=== PATIENT | male | born 1970 | race Two or more races ===

== ENCOUNTER 2020-08-04 10:42 | Outpatient (REF) | payer OTHER, BC, SELFPAY | END 2020-08-04 10:43 | disposition home or self-care (01) | LOC: HO.LAB 10:42 | PROVIDERS: Visit Provider Internal Medicine | DX: Z20.828 Contact with and (suspected) exposure to other viral communicable diseases (principal) | CPT/HCPCS: C9803; U0003 ==

== ENCOUNTER 2020-09-11 14:25 | Outpatient (REF) | payer OTHER, BC, SELFPAY ==
[2020-09-11 15:08] LABS: Influenza A PCR NEGATIVE (Negative); Influenza B PCR NEGATIVE (Negative); Resp Syncy Virus RNA Qual PCR NEGATIVE (Negative); SARS COV2 PCR INHOUSE NEGATIVE (Negative)
== END 2020-09-11 14:26 | disposition home or self-care (01) ==
LOC: HO.LNP 14:25
PROVIDERS: Visit Provider Internal Medicine
DX: Z20.822 Contact with and (suspected) exposure to COVID-19 (principal)
CPT/HCPCS: 0241U

== ENCOUNTER → 2021-09-17 14:27 | Outpatient (BNVA) | payer OTHER, SELFPAY | PROVIDERS: PCP Internal Medicine; Referring Provider Internal Medicine; Visit Provider Surgery | DX: K64.9 Unspecified hemorrhoids (principal) | CPT/HCPCS: 46600; 99202 ==

== ENCOUNTER 2021-10-09 06:47 | Day surgery (SDC) | payer OTHER, SELFPAY ==
--- NOTE | 2021-10-08 09:23 | HO.ANESPROP2 ---
Documented by User: Katherin Lanza NP 10/08/21 09:24 HPI - Anesthesia Eval Consult details Narrative: 50yo M for EUA, Hemorrhoidectomy PMFSH Active Problems Active Problems: All Active Problems (Updated 09/17/21 @ 14:56 by Marc Cleary MD) Bleeding hemorrhoids (Acute) Past Medical History Medical History (Updated 10/09/21 @ 07:09 by Juany Holder) Bleeding hemorrhoids Depression Factor VII deficiency PTSD (post-traumatic stress disorder) Family History Family History Mother Ovarian cancer Surgical History Surgical History (Updated 10/09/21 @ 07:19 by Juany Holder) Status post left foot surgery Status post right foot surgery Social History Social History Alcohol intake: current Alcohol intake frequency: a few times a month Patient Tobacco Use Status: Never used Tobacco Use of substances other than those prescribed or required for medical reasons: No Are you DNR?: No Advance Directives: No Advance Directives Information Provided: Yes Meds Allergies Allergy/AdvReac Type Severity Reaction Status Date / Time No Known Allergies Allergy Verified 10/09/21 07:04 Home Medications Medication Instructions Recorded Confirmed Last Taken Type melatonin 1 tab PO BEDTIME PRN 10/09/21 10/09/21 Unknown History prazosin 1 cap PO BEDTIME 10/09/21 10/09/21 Unknown History sertraline 1 tab PO DAILY 10/09/21 10/09/21 Unknown History Exam Exam Date and Time: October 08, [id number] Assessment and Plan Assessment Anesthesia Assessment: Chart Reviewed Documented by User: Joby Mas 10/09/21 08:34 HPI - Anesthesia Eval Consult details Narrative: 50yo M for EUA, Hemorrhoidectomy [place] PMFSH Past Medical History Medical History (Updated 10/09/21 @ 07:09 by Juany Holder) Bleeding hemorrhoids Depression Factor VII deficiency PTSD (post-traumatic stress disorder) Family History Family History Mother Ovarian cancer Family history of problems with anesthesia: No Surgical History Surgical History (Updated 10/09/21 @ 07:19 by Juany Holder) Status post left foot surgery Status post right foot surgery History of Problems with Anesthesia: No Social History Social History Alcohol intake: current Alcohol intake frequency: a few times a month Patient Tobacco Use Status: Never used Tobacco Use of substances other than those prescribed or required for medical reasons: No Are you DNR?: No Advance Directives: No Advance Directives Information Provided: Yes Meds Allergies Allergy/AdvReac Type Severity Reaction Status Date / Time No Known Allergies Allergy Verified 10/09/21 07:04 Home Medications Medication Instructions Recorded Confirmed Last Taken Type melatonin 1 tab PO BEDTIME PRN 10/09/21 10/09/21 Unknown History prazosin 1 cap PO BEDTIME 10/09/21 10/09/21 Unknown History sertraline 1 tab PO DAILY 10/09/21 10/09/21 Unknown History Exam Airway Mallampati Class: III Loose/Missing/Broken Teeth: Yes Heart: rrr Lungs: bl breath sounds Assessment and Plan Assessment Anesthesia Assessment: Anesthesia Plan Discussed Final Anesthetic Review Family History of Problems with Anesthesia: No History of Problems with Anesthesia: No NPO: Yes ASA Class: II Final Preanesthetic Review: Meds/Allgs Chart Reviewed and Anes Risks/Benef Reviewed Patient Risk: Intermediate Procedure Risk: Intermediate Anesthetic Plan Anesthetic Plan: GA Disposition: Standard PACU
[2021-10-09] VITALS (8 sets, daily range): BP systolic 94–110; BP diastolic 55–74; PULSE 54–75; RESP 16–17; TEMP 36.2–36.7; O2SAT 97–100; BMI 24.3
--- NOTE | 2021-10-09 07:29 | PC.NURSE ---
Patient drank 7oz of water this morning at 0600. Anesthesia Dr. Mas notified. Okay to proceed with procedure.
--- NOTE | 2021-10-09 07:29 | MHC.SHP ---
Pre-Procedural Eval Section A Date of Service: 10/09/21 The patient is an INPATIENT: No Changes since office visit: No Cold of Flu in the past 2 weeks, No New Medical Problems, No Changes in Medication and No Patient answered all questions The History & Physical has been completed within 30 days and I have reviewed it.: Yes Section B Chief Complaint: Bleeding Hemorrhoids Allergies: Allergies Allergy/AdvReac Type Severity Reaction Status Date / Time No Known Allergies Allergy Verified 10/09/21 07:04 Plan I have reviewed the history and physical and performed a pertinent physical examination on my patient. No changes have occurred unless specified.
[2021-10-09] MEDS: Lactated Ringers 1,000 ML 100 ML IVCONT (08:03)
--- NOTE | 2021-10-09 09:32 | W.PM.OPN ---
Operative Note Operative Note Date of Service: 10/09/21 Narrative: Preop diagnosis: Bleeding hemorrhoids Postop diagnosis: Bleeding hemorrhoids, internal and external on the right Procedure: Exam under anesthesia hemorrhoidectomy Surgeon: Marc Cleary MD Patient is a 50-year-old male has a long history of internal external hemorrhoids with bleeding. He wanted to proceed with hemorrhoidectomy in view of this. He understood the technique of the procedure. He was aware of the risks, benefits, and alternatives. He was brought to the operating room and placed in prone carroll-knife position under general anesthesia via endotracheal tube. The buttocks were retracted with wide tape laterally. The perianal area was prepped and draped in the usual sterile fashion. A surgical time-out was done. The patient received Cefotan 2 g IV preoperatively. I infiltrated the perianal area with lidocaine 1%. Examination of the anal orifice revealed an external hemorrhoid on the right side. Inserted the Melly Howell retractor. I examined the anal canal circumferentially. Again this mixed internal and external hemorrhoidal column was seen on the right side and appeared to be moderate size. There were no other lesions. There was no other prominent hemorrhoidal column. I applied a Abraham grasper at the hemorrhoidal column on the right side to retract this. I made a [id number] stitch at the pedicle using chromic 3-0. Then incision around this hemorrhoidal column to the perianal skin using blade 15. I excised this hemorrhoidal column above the plane of the sphincters along this incision using Metzenbaum scissors. I closed this incision with a running chromic 3-0 stitch. Multiple additional chromic 3-0 [id number] sutures were placed for hemostasis. Once hemostasis was ensured, I reexamined the anal canal and there were no other lesions or large hemorrhoidal columns seen . I infiltrated the perianal area with Marcaine 0.5% for postop MIGUEL. The procedure was then completed. The patient tolerated procedure well with no complication noted. Initial and final counts of sponges and instruments were correct. Estimated blood loss was about 40 cc. The patient was extubated without difficulty and transferred to the recovery room with stable vital signs.
== END 2021-10-09 12:12 | disposition home or self-care (01) ==
PROVIDERS: Visit Provider Surgery
PROC: (CPT 46255; principal; 2021-10-09 08:20)
DX: K64.8 Other hemorrhoids (principal); K64.4 Residual hemorrhoidal skin tags
CPT/HCPCS: 46255; 88304; J0131; J1100; J2250; J2405; J3010

== ENCOUNTER → 2021-10-22 14:57 | Outpatient (BNVA) | payer OTHER, SELFPAY | PROVIDERS: Visit Provider Surgery | DX: Z48.815 Encounter for surgical aftercare following surgery on the digestive system (principal); Z87.19 Personal history of other diseases of the digestive system | CPT/HCPCS: 99212 ==

== ENCOUNTER → 2021-11-12 15:31 | Outpatient (BNVA) | payer OTHER, SELFPAY | PROVIDERS: Visit Provider Surgery | DX: Z09 Encounter for follow-up examination after completed treatment for conditions other than malignant neoplasm (principal); Z87.19 Personal history of other diseases of the digestive system | CPT/HCPCS: 99212 ==

== ENCOUNTER 2024-10-22 13:11 | Emergency (ER) | payer OTHER, SELFPAY | END 2024-10-22 15:21 | disposition left against medical advice (07) | LOC: HO.ED 15:19 | PROVIDERS: Emergency Provider Emergency Medicine | DX: M25.569 Pain in unspecified knee (principal) ==